=== PATIENT | female | born 1990 | race Caucasian/White ===

== ENCOUNTER 2018-05-09 05:15 | Inpatient (IN) | payer MEDICAID ==
[2018-05-09 06:26] VITALS: BMI 28.7
[2018-05-09] MEDS ORDERED: Oxytocin 30 UNIT 30 UNITS/500 ML BAG IV ONE (06:29)
[2018-05-09] MEDS ORDERED: Lactated Ringer's 1,000 ML IV SCH (06:30)
[2018-05-09] MEDS ORDERED: OXYTOCIN/0.9 % NS 20 UNIT/1,000 ML BAG IV SCH (06:30)
[2018-05-09] MEDS: Lactated Ringer's 1,000 ML IV ONE ×2 (06:50→08:00)
[2018-05-09 07:21] VITALS: TEMP 98.5
[2018-05-09] MEDS ORDERED: Fentanyl/Bupivacaine HCl 250 ML EPI ONE (07:42)
[2018-05-09 07:51] LABS: BASO % 0.2 % (0.0-2.0); EOS # 0.1 K/uL (0.0-0.7); EOS % 0.9 % (0.0-4.0); HEMOGLOBIN 11.5 g/dL (12.0-16.0); LYMPH # 1.7 K/uL (1.0-4.3); LYMPH % 22.5 % (20.0-40.0); MEAN CELL VOLUME 91.8 fl (81.0-99.0); MEAN CORPUSCULAR HEMOGLOBIN 30.1 pg (27.0-31.0); MEAN CORPUSCULAR HGB CONC 32.8 g/dL (33.0-37.0); MEAN PLATELET VOLUME 9.5 fl (7.2-11.7); MONO # 0.5 K/uL (0.0-0.8); NEUT # 5.4 K/uL (1.8-7.0); NEUT % 69.4 % (50.0-75.0); NRBC % 0.1 % (0.0-0.0); RBC 3.84 Mil/uL (3.80-5.20); RED CELL DISTRIBUTION WIDTH 13.7 % (11.5-14.5); WHITE BLOOD COUNT 7.8 K/uL (4.8-10.8)
[2018-05-09] MEDS ORDERED: Lidocaine 1% Inj (20ml) ONE (08:24)
--- NOTE | 2018-05-09 09:55 | OBHP ---
Datetime: 05/09/2018 06:42 IP Adm Impression: Term, intrauterine IP Admit Plan: Admit to unit FHR - Baseline A Provider: 140 Gestation - Est Wks by US: 37.3 Pool Provider: Positive IP Hx Assessment: The History has been Reviewed and is Current EGA AdmitDate IP: 38.6 Vital Signs Provider: Reviewed; Within Normal Limits IP Chief Complaint: Uterine contractions; Suspected ruptured membranes NICHD Variability Prov Fetus A: Moderate 6-25bpm NICHD Accel Fetus A IP Provider: 15X15 FHR Category Provider Fetus A: Category I NICHD Decel Fetus A IP Provider: None Dilatation, Provider: 3 Effacement, Provider: 80 Station, Provider: -3 Datetime: 05/09/2018 06:12 Admit Comment, IP Provider: 26 y/o at 38.3wks based on LMP of 08/20/2017 w/[facility] with 05/27/2018 p resenting with c/o contractions that started at 5pm _ loss of fluid at 4am. She also reports some spo tting _ endorses +FM. She denied f/c/n/v/d, cp or shortness of breath. OBGYNhx: hx of herpes, previous , @ 40 wks PMH: Herpes Famhx: mother-DM Sochx: Denies smoking ROS:12 points reviewed _ negative unless otherwise stated in HPI VS: BP: 114/68 P-77bpm spo2-98% RR-16 Gen: laying in supine position grimacing Cardio: s1s2, no murmurs Resp: cta b/l Abd: Gravid, BS+ Ext: calves nontender A/P: 26 y/o at 38.3wks based on LMP of 08/20/2017 w/[facility] with 05/27/2018 presenting with c/o co ntractions that started at 5pm _ loss of fluid at 4am. 1. Admit to unit with initiation of labor protocol. 2. IV fluids. Patient seen and evaluated with Dr. Gabriela Lindsay, PGY-1 OB Hospitalist Addendum: Pt seen and exmained by me. Agree w/a above. 26 yo at 38+3 wks w/ EDC 05/27/2018 by LMP w/ SROM in labor. GBS negative. FHT reactive. (ES) Extremities - PN: Normal Abdomen - PN: Normal Lungs - PN: Normal Heart - PN: Normal General - PN: Normal
--- NOTE | 2018-05-09 09:58 | OBADHP ---
Datetime: 05/09/2018 06:42 Admit Comment, IP Provider: 26 y/o at 37.3wks based on LMP of 08/20/2017 w/[facility] with 05/27/2018 p resenting with c/o contractions that started at 5pm _ loss of fluid at 4am. She also reports some spo tting _ endorses +FM. She denied f/c/n/v/d, cp or shortness of breath. OBGYNhx: hx of herpes, previous , @ 40 wks PMH: Herpes Famhx: mother-DM Sochx: Denies smoking ROS:12 points reviewed _ negative unless otherwise stated in HPI VS: BP: 114/68 P-77bpm spo2-98% RR-16 Gen: laying in supine position grimacing Cardio: s1s2, no murmurs Resp: cta b/l Abd: Gravid, BS+ Ext: calves nontender A/P: 26 y/o at 38.3wks based on LMP of 08/20/2017 w/[facility] with 05/27/2018 presenting with c/o co ntractions that started at 5pm _ loss of fluid at 4am. 1. Admit to unit with initiation of labor protocol. 2. IV fluids. Patient seen and evaluated with Dr. Gabriela Lindsay, PGY-1 OB Hospitalist Addendum: Pt seen and exmained by me. Agree w/a above. 26 yo at 38+3 wks w/ EDC 05/27/2018 by LMP w/ SROM in labor. GBS negative. FHT reactive. (ES) FHR - Baseline A Provider: 140 Gestation - Est Wks by US: 37.3 Pool Provider: Positive IP Hx Assessment: The History has been Reviewed and is Current Vital Signs Provider: Reviewed; Within Normal Limits IP Chief Complaint: Uterine contractions; Suspected ruptured membranes NICHD Variability Prov Fetus A: Moderate 6-25bpm NICHD Accel Fetus A IP Provider: 15X15 FHR Category Provider Fetus A: Category I NICHD Decel Fetus A IP Provider: None Dilatation, Provider: 3 Effacement, Provider: 80 Station, Provider: -3 EGA AdmitDate IP: 38.6 IP Adm Impression: Term, intrauterine IP Admit Plan: Admit to unit Datetime: 05/09/2018 06:12 Extremities - PN: Normal Abdomen - PN: Normal Lungs - PN: Normal Heart - PN: Normal General - PN: Normal
[2018-05-09] MEDS ORDERED: Oxycodone/Acetaminophen 5/325 mg Tab PO PRN ×2 (11:08→15:14)
[2018-05-09] MEDS ORDERED: Benzocaine/Menthol SPRAY TOP PRN ×2 (11:08→15:14)
[2018-05-10 06:33] LABS: BASO % 0.3 % (0.0-2.0); EOS # 0.1 K/uL (0.0-0.7); EOS % 0.8 % (0.0-4.0); LYMPH % 17.5 % (20.0-40.0); MEAN CELL VOLUME 89.8 fl (81.0-99.0); MEAN CORPUSCULAR HEMOGLOBIN 29.8 pg (27.0-31.0); MEAN CORPUSCULAR HGB CONC 33.2 g/dL (33.0-37.0); MEAN PLATELET VOLUME 9.5 fl (7.2-11.7); MONO # 0.6 K/uL (0.0-0.8); MONO % 5.7 % (0.0-10.0); NEUT # 8.5 K/uL (1.8-7.0); NEUT % 75.7 % (50.0-75.0); NRBC % 0.1 % (0.0-0.0); RBC 3.34 Mil/uL (3.80-5.20); RED CELL DISTRIBUTION WIDTH 13.8 % (11.5-14.5); WHITE BLOOD COUNT 11.3 K/uL (4.8-10.8)
--- NOTE | 2018-05-10 08:37 | OBPPN ---
Datetime: 05/10/2018 06:47 PP Pain Prov: Within normal limits PP Nausea Prov: Denies PP Flatus Prov: No PP BM Prov: No PP Breasts Prov: Normal PP Heart Prov: Normal PP Lungs Prov: Normal PP Abdomen/Uterus Prov: Normal PP Lochia Prov: Normal PP Extremities Prov: Normal PP Impression Prov: Normal progression PP Plan Prov: Continue present management PP Progress Note Prov: [id number] interpretation services 27 y/o , PPD1 s/p 05/09/2018 @ 1058AM wasseen and examined at bedside this AM. No adverse overnight. Pt states pelvic pain is well controlled with pain meds. Pt is ambulatory, tolerating PO r egular diet, B _ B feeding w/o difficulty. Lochia is similar to menses volume. Voiding w/o difficulty . -Flatus _ -BM. Denies f/c/n/v/d,chest pain or shortness of breath. VS: BP: 110/74 Temp: 98.1F, 64bpm, RR-16 spo2-100% PE: GEN: Laying in supine position, breathing comfortably in bed CVS: S1, S2 RRR LUNGS: CTA B/L ABD: +BS, soft with appropriate tenderness, fundus @ umbilical level. ? EXT: Nonedematous, calves nontender NEURO: AAOx3 27 y/o , PPD1 s/p -Continue regular diet as tolerated. -Ambulation as tolerated encouraged. - encouraged. -Continue medications prn pain. Case discussed with attending. -Dr. GINO Lindsay, FM, PGY-1 Attending addendum: I saw and examined the patient at bedside myself this morning. I reviewed the resident note above and agree with findings and management. Continue routine pp care, anticipate DC home tomorrow. Bertha Meyer MD IP PP Procedures: None Vital Signs Provider PP: Reviewed; Within Normal Limits
--- NOTE | 2018-05-10 09:32 | OBDS ---
DELIVERY PERSONNEL Delivery Doctor: Ranjan Ochoa MD Scrub Nurse: Dayanara Hay Filter Tender: Lillie Bal RN Anesthesiologist: Brooks Allen MD MATERNAL INFORMATION Delivery Anesthesia: Epidural Medications in Delivery: Pitocin 30 units Estimated Blood Loss (ml): 250 Placenta Cultured: No Maternal Complications: None Provider Comments: 27 year old GBS negative admitted at term for PROM. Progressed to normal spo ntaneous vaginal delivery of live male infact, position HEATHER, over intact perineum with epidural anest hesia. No labor augmentation needed. No meconium, loose nuchal cord x1. Infant was placed on maternal abdomen and delayed cord clamping was performed. No excessive resuscitation was required, Apgars 9 _ 9. Spontaneous delivery of placenta with 3-vessel cord. No lacerations. EBL appropriate for vaginal delivery. Mom and infant are in stable condition and will be recovered in L_D. Ami Madison MD OB Fellow LABOR SUMMARY EDC: 05/17/2018 00:00 No. Babies in Womb: 1 Attempted: No Labor Anesthesia: Epidural LABOR INFORMATION Reason for Induction: Not Applicable Complete Dilatation: 05/09/2018 10:25 Oxytocin: N/A Group B Beta Strep: Negative Steroids Given: None Reason Steroids Not Administered: Not Applicable MEMBRANES Membranes Rupture Method: Spontaneous Rupture of Membranes: 05/09/2018 04:00 Length of Rupture (hrs): 6.97 Amniotic Fluid Color: Clear Amniotic Fluid Amount: Large Amniotic Fluid Odor: None STAGES OF LABOR Stage 2 hrs: 0 Stage 2 min: 33 Stage 3 hrs: 0 Stage 3 min: 4 VAGINAL DELIVERY Episiotomy: None Laceration Extension: N/A Laceration Type: None Initial Vag Sponge Count: 5 Final Vag Sponge Count: 5 Initial Vag Sharps Count: 0 Final Vag Sharps Count: 0 Sponge Count Correct: Yes Sharps Count Correct: N/A BABY A INFORMATION Delivery Date/Time: 05/09/2018 10:58 Method of Delivery: Vaginal Born in Route : No : N/A Forceps: N/A Vacuum Extraction: N/A Shoulder Dystocia : No SHOULDER DYSTOCIA BABY A Delivery Date/Time: 05/09/2018 10:58 PRESENTATION/POSITION BABY A Presentation: Cephalic Cephalic Presentation: Vertex Breech Presentation: N/A PLACENTA INFORMATION BABY A Placenta Delivery Time : 05/09/2018 11:02 Placenta Method of Delivery: Spontaneous Placenta Status: Delivered SCORES BABY A Heart Rate 1 min: >100 bpm Resp Effort 1 min: Good Cry Reflex Irritability 1 min: Cough or Sneeze or Pulls Away Muscle Tone 1 min: Active Motion Color 1 min: Body [place], Extremities Blue Resuscitation Effort 1 min: Tactile Stimulation SCORE 1 MIN: 9 Heart Rate 5 min: >100 bpm Resp Effort 5 min: Good Cry Reflex Irritability 5 min: Cough or Sneeze or Pulls Away Muscle Tone 5 min: Active Motion Color 5 min: Body [place], Extremities Blue Resuscitation Effort 5 min: Tactile Stimulation SCORE 5 MIN: 9 INFORMATION BABY A Gestational Age at Delivery: 38.0 Gestational Status: Term Infant Outcome : Liveborn Infant Condition : Stable Sex: Male IDENTIFICATION/MEDS BABY A ID Band Location: Left Leg; Left Arm WEIGHT/LENGTH BABY A Infant Birthweight (gms): 2535 Infant Weight (lb): 5 Infant Weight (oz): 9 CORD INFORMATION BABY A No. Cord Vessels: 3 Nuchal Cord : N/A Infant Suction: None ASSESSMENT BABY A Complications: Multiple Variable Decels Physical Findings at Delivery: Caput Succedaneum Infant Respirations: Appears Normal Railroad Firer/Fireman/ALS Called : No Care By: Jessica/MLTeddy Transferred To: Remains with Mother
--- NOTE | 2018-05-11 08:49 | OBDCSUM ---
Datetime: 05/11/2018 03:25 Discharged to, Provider: Home Follow up at, Provider: [facility] Dr. Smith Disch Instr Activity: May be up to bathroom; May be up for meals; May Shower Disch Instr Diet: Regular Discharge Instructions, Provider: Routine instructions given Discharge Diagnosis, Provider: Term Delivered Follow up in weeks, Provider: 4-6 wks Disch Referrals: None Contraception discussed, Prov: Yes Disch Activity Restrictions: No lifting; Minimize stair-climbing; No sexual activity; Nothing in vag lexy - [place], tampons, douche Discharge Comment, Provider: 1. encouraged. 2.Continue Vitamins 1 tab orally daily. 3.Ibuprofen 600 mg 1 tab orally as needed every4-6 hours if moderate pain. 4.Ambulate as tolerated with caution. 5.Nothing per vagina/sex for 4 weeks, no heavy lifting, avoid stairs. If excessive bleeding or fev er please go to ED. Attending addendum: I saw and examined the patient myself at the bedside this morning. I reviewed the resident note ab ove and agree with findings and management. Bertha Meyer MD Contraception after Delivery: Undecided
--- NOTE | 2018-05-11 08:49 | OBPPN ---
Datetime: 05/11/2018 06:38 PP Pain Prov: Within normal limits PP Nausea Prov: Denies PP Flatus Prov: Yes PP BM Prov: No PP Heart Prov: Normal PP Lungs Prov: Normal PP Abdomen/Uterus Prov: Normal PP Lochia Prov: Normal PP Extremities Prov: Normal PP Impression Prov: Normal progression PP Plan Prov: Continue present management PP Progress Note Prov: 27 y/o , PPD2 s/p 05/09/2018 @ 1058AM was seen and examined at [facility] this AM. No adverse overnight. Pt states pelvic pain is well controlled with pain meds. Pt is ambul atory, tolerating PO regular diet, Breast feeding w/o difficulty. Lochia is similar to menses volume. Voiding w/o difficulty. -Flatus _ -BM. Denies f/c/n/v/d, ?chest pain or shortness of breath. VS: BP: 114/60 Temp: 98.1F, 62bpm, RR-16 spo2-100% PE: GEN: awake sitting upright in bed . CVS: S1, S2 RRR LUNGS: CTA B/L ABD: +BS, soft with appropriate tenderness, fundus @ umbilical level. EXT: Nonedematous, calves nontender NEURO: AAOx3 27 y/o , PPD2 s/p . -Continue regular diet as tolerated. -Ambulation as tolerated encouraged. - encouraged. -Continue Ibuprofen prn for mild pain. -Discharge today. Case discussed with attending. -DANIEL Rehman JP, PGY-1 Attending addendum: I saw and examined the patient myself at the bedside this morning. I reviewed the resident note ab ballester[place] and agree with findings and management. Bertha Meyer MD Vital Signs Provider PP: Reviewed; Within Normal Limits
[2018-05-11 18:54] VITALS: BP 118/74; PULSE 65; RESP 20; O2SAT 98
== END 2018-05-11 13:40 | disposition home or self-care (01) | DRG 560 ==
LOC: H.EROB2 05:15 → EDBD 05:15 → H.L&D 06:27 → H.OB/GYN 15:19
PROVIDERS: ADMIT Obstetrics & Gynecology; ATTEND Obstetrics & Gynecology
PROC: 10E0XZZ Delivery of Products of Conception, External Approach (ICD-10-PCS; principal; 2018-05-09)
DX: O76 Abnormality in fetal heart rate and rhythm complicating labor and delivery (principal); Z37.0 Single live birth; Z3A.38 38 weeks gestation of pregnancy; Z86.19 Personal history of other infectious and parasitic diseases